=== PATIENT | female | born 1930 | race Caucasian/White ===

== ENCOUNTER 2016-04-02 18:25 | Observation (INO) | payer MEDICARE, OTHER ==
[2016-04-02 19:00] VITALS: BMI 33.2
--- NOTE | 2016-04-02 19:24 | History and Physical Report ---
History of Present Illnes - History of Present Illness Reason for Visit: Nausea vomiting History of Present Illness: 85yo white female with a 2 day history of nausea vomiting and diarrhea. Has vomited 1-15 times today with dry heaves. No blood noted. Has had about 10 stools, no bllod noted. Having some mild abd pain. Fever up to 101 today having some mild chills. Son-in-law with similar symptoms. Patient is diabetic, BS have been all over the place. Some mild hypoglycemic symptoms at time. Due to her medical problems and the inability to keep oral fluids and medications down will admit to observation care. - Past Medical History Cardiac: CAD, HTN, [place] Pulmonary: Asthma (mild intermittent) Endocrine: Diabetes (type 2) - Past Surgical History Past Surgical History: CABG (3 vessels), Other (cataracts removed, carpal tunnel bilaterally) - Past Family History Mother Family History: DM, (67yo, gangrene) Father Family History: (32yo, typhoid fever) Sister 1 Family History: DM, (61yo, complications of DM) - Past Social History Smoke: Quit (50 yrs ago) Occupation: retired, fast [employer] rest[employer] Alcohol: None Drugs: None Lives: With Family Domestic Violence: Negative - Health Maintenance Health Maintenance: Influenza Vaccine, Pneumococcal Vaccine (pneumovac 23). denies: Mammogram Influenza Vaccine: Current for this Influenza Season Pneumonia Vaccine: Yes Resuscitation Status: Resusciation Status Resuscitation Status Full Code - Unable to Obtain History Unable to Obtain: Yes Review of Systems - Review of Systems Constitutional: Fever, Chills, Weakness Eyes: negative: pain, vision change ENT: Nose Discharge (clears). negative: Ear Pain, Ear Discharge, Nose Pain, Nose Congestion, Mouth Pain, Mouth Swelling, Throat Swelling Respiratory: Cough, Shortness of Breath (mild), SOB with Excertion, Wheezing ( mild). negative: Hemoptysis, Pleuritic Pain, Sputum Cardiovascular: negative: Chest Pain, Palpitations, Orthopnea, Paroxysmal Noc. Dyspnea, Edema Gastrointestinal: Nausea, Vomiting, Abdominal Pain, Diarrhea. negative: Constipation, Melena, Hematochezia Genitourinary: Incontinence. negative: Dysuria, Frequency, Hematuria Musculoskeletal: negative: Neck Pain, Shoulder Pain, Arm Pain Skin: negative: Rash Neurological: negative: Weakness, Numbness, Change in Speech, Confusion, Seizures - Medications/Allergies Allergies/Adverse Reactions: Allergies Allergy/AdvReac Type Severity Reaction Status Date / Time nitrofurantoin Allergy Severe Shortness Verified 08/07/14 20:57 [From Macrobid] of Breath nitrofurantoin Allergy Severe Shortness Verified 08/07/14 20:57 macrocrystalline of Breath [From Macrobid] Sulfa (Sulfonamide Allergy Severe Localized Verified 08/07/14 20:57 Antibiotics) Swelling doxycycline Allergy Intermediate Rash Verified 08/07/14 20:57 rosiglitazone maleate Allergy Intermediate Hives Verified 08/07/14 20:57 [From Avandia] gabapentin [From Neurontin] Allergy Mild hyper Verified 08/07/14 20:57 lisinopril Allergy Unknown Cough Verified 08/07/14 20:57 atorvastatin calcium AdvReac Mild Localized Verified 08/07/14 20:57 [From Lipitor] Swelling Exam - Exam General: Alert, Oriented to Person, Oriented to Place, Oriented to Time, Cooperative, Moderate distress HEENT: Atraumatic, Hearing Grossly Normal. No: Mouth Mucous membr. moist/[place] ( dry), Pharyngeal Erythema Neck: Normal Range of Motion. No: Stridor, Rigidity, Lymphadenopathy Carotids: WNL Thyroid: WNL Lungs: Clear to auscultation, Normal air movement. No: Respiratory Distress, Wheezes, Rales, Rhonchi Cardiovascular: Regular rate, Normal S1, Normal S2, No murmurs. No: Gallops, Rubs Abdomen: Soft, Hyperactive Bowel Sounds. No: No tenderness (mild diffuse tenderness), No masses, Distended, Rigid Integumentary: Normal, [place], Warm, Dry Extremities: No clubbing, No cyanosis, No edema, Normal pulses Neurological: Normal gait, Normal speech, Strength Equal Bilat, Normal tone, Cranial nerves 3-12 NL, Reflexes 2+ Psych/Mental Status: Mental status NL, Mood NL, Appropriate Affect, Intact Judgment Assessment/Plan - Assessment/Plan (1) Viral gastroenteritis Status: Acute Current Visit: Yes (2) CAD (coronary artery disease) Status: Chronic Current Visit: Yes Qualifiers: Coronary Disease-Associated Artery/Lesion type: [place] artery [place] vs. 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
[2016-04-02 19:40] LABS: BASOPHILS % 0.1 (0.0-1.5); EOSINOPHILS % 1.1 % (0.0-6.8); LYMPHOCYTES # 0.4 # k/uL (0.6-4.0); MEAN CORPUSCULAR HEMOGLOBIN 31.8 pg (28.0-34.0); MONOCYTES # 0.2 # k/uL (0.0-0.9); MONOCYTES % 3.7 % (0.0-11.0); NEUTROPHILS # 3.6 # k/uL (1.4-7.7)
[2016-04-02] MEDS ORDERED: NITROGLYCERIN 0.4 MG TAB.SUBL SL PRN (19:45)
[2016-04-02] MEDS ORDERED: ALPRAZOLAM 0.5 MG TABLET PO PRN (19:45)
[2016-04-02] MEDS ORDERED: ONDANSETRON HCL/PF 4 MG/ 2ML VIAL IVP PRN (19:51)
[2016-04-02 19:57] LABS: eGFR (African) > 60; eGFR (Non-African) > 60
[2016-04-02] MEDS ORDERED: 0.9 % SODIUM CHLORIDE 1,000 ML IV SCH (20:00)
[2016-04-02] MEDS ORDERED: INSULIN DETEMIR 100 UNIT/ML 3ML PEN.INJCTR SQ SCH (21:00)
[2016-04-02] MEDS ORDERED: MIRTAZAPINE 15 MG TABLET PO SCH (21:00)
[2016-04-02] MEDS: 0.9 % SODIUM CHLORIDE 1,000 ML IV SCH (22:59)
[2016-04-02] MEDS: ENOXAPARIN SODIUM 30 MG/0.3 ML DISP.SYRIN SQ SCH ×2 (23:00→23:03)
[2016-04-02] MEDS: CARVEDILOL 6.25 MG TABLET PO SCH (23:01)
[2016-04-02] MEDS: INSULIN REGULAR, HUMAN 100 UNIT/ML 3ML VIAL SQ SCH (23:17)
[2016-04-03] MEDS ORDERED: ASPIRIN EC 81 MG TABLET.DR ONE (04:44)
[2016-04-03] MEDS: 0.9 % SODIUM CHLORIDE 1,000 ML IV SCH (06:17)
[2016-04-03] MEDS ORDERED: PANTOPRAZOLE SODIUM 40 MG TABLET PO SCH (07:00)
[2016-04-03] MEDS: INSULIN REGULAR, HUMAN 100 UNIT/ML 3ML VIAL SQ SCH ×2 (07:53→13:05)
[2016-04-03] MEDS ORDERED: CARVEDILOL 6.25 MG TABLET PO ONE (08:05)
[2016-04-03] MEDS: CARVEDILOL 6.25 MG TABLET PO SCH (08:10)
[2016-04-03] MEDS ORDERED: CARVEDILOL 6.25 MG TABLET PO SCH (08:24)
[2016-04-03 08:39] VITALS: BP 106/52
[2016-04-03] MEDS ORDERED: SPIRONOLACTONE 25 MG TABLET PO SCH (09:00)
[2016-04-03] MEDS ORDERED: ASPIRIN 81 MG CHEW TAB PO SCH (09:00)
[2016-04-03] MEDS ORDERED: CITALOPRAM HYDROBROMIDE 20 MG TABLET PO SCH (09:00)
[2016-04-03] MEDS ORDERED: LOSARTAN POTASSIUM 50 MG TABLET PO SCH (09:00)
[2016-04-03] MEDS ORDERED: CLOPIDOGREL BISULFATE 75 MG TABLET PO SCH (09:00)
[2016-04-03] MEDS ORDERED: amLODIPine BESYLATE 5 MG TABLET PO SCH (09:00)
[2016-04-03] MEDS ORDERED: ISOSORBIDE MONONITRATE 30 MG TAB.ER.24H PO SCH (09:00)
--- NOTE | 2016-04-03 12:13 | Discharge Summary ---
Discharge Summary - Discharge Sumary History of Present Illness: 85yo white female with a 2 day history of nausea vomiting and diarrhea. Has vomited 1-15 times today with dry heaves. No blood noted. Has had about 10 stools, no bllod noted. Having some mild abd pain. Fever up to 101 today having some mild chills. Son-in-law with similar symptoms. Patient is diabetic, BS have been all over the place. Some mild hypoglycemic symptoms at time. Admitted for rehydration and treatment of diarrhea and vomiting. Home Medications: Ambulatory Orders Medication Instructions Recorded Alprazolam [Xanax] 0.25 mg PO Q6 PRN u2 10/19/12 Lovastatin 20 mg PO HS u2 10/19/12 Nitroglycerin 0.4 mg SL SEE.INSTRUCTIONS u2 10/19/12 Aspir 81 81 mg PO DAILY u2 11/11/12 Cholecalciferol (Vitamin D3) 5,000 unit PO DAILY u2 03/23/13 [Vitamin D3] Metformin HCl [Glucophage] [place] [address] tablet 04/03/16 Ondansetron HCl Rapdis [Zofran Odt] 4 mg PO Q8 #10 tab 04/03/16 Consultations this Visit: None Procedures this Visit: None Allergies/Adverse Reactions: Allergies Allergy/AdvReac Type Severity Reaction Status Date / Time nitrofurantoin Allergy Severe Shortness Verified 08/07/14 20:57 [From Macrobid] of Breath nitrofurantoin Allergy Severe Shortness Verified 08/07/14 20:57 macrocrystalline of Breath [From Macrobid] Sulfa (Sulfonamide Allergy Severe Localized Verified 08/07/14 20:57 Antibiotics) Swelling doxycycline Allergy Intermediate Rash Verified 08/07/14 20:57 rosiglitazone maleate Allergy Intermediate Hives Verified 08/07/14 20:57 [From Avandia] gabapentin [From Neurontin] Allergy Mild hyper Verified 08/07/14 20:57 lisinopril Allergy Unknown Cough Verified 08/07/14 20:57 atorvastatin calcium AdvReac Mild Localized Verified 08/07/14 20:57 [From Lipitor] Swelling Patient Problems: Current Active Problems Problem Status Onset Viral gastroenteritis Acute CAD (coronary artery disease) Chronic Diabetes type 2, controlled Chronic Essential hypertension Chronic Discharge Summary: Patient had blood work done which was stable. patient was started on IV fluids of NS and zofran for nausea. Patient was placed on a clear liquid diet which she tolerated well. Patient's nausea did resolve during the hospitalization. Her diarrhea did improve but was still present at discharge. Blood sugars remained stable in the 100 range. Patient remained afebrile with stable VS. - Final Diagnosis (1) Viral gastroenteritis Problems: Improved, still having some diarrhea, nausea resolved (2) CAD (coronary artery disease) Problems: stable on home meds, no chest pain/pressure (3) Diabetes type 2, controlled Problems: stable on sliding scale insulin, BS in the 100s (4) Essential hypertension Problems: stable on home meds
== END 2016-04-03 13:00 | disposition home or self-care (01) ==
LOC: SOUTH 18:25 → INTOOBSV 18:25
PROVIDERS: ADMIT Family Medicine; ATTEND Family Medicine
DX: A08.4 Viral intestinal infection, unspecified (principal); E11.9 Type 2 diabetes mellitus without complications; I25.10 Atherosclerotic heart disease of native coronary artery without angina pectoris; I10 Essential (primary) hypertension
CPT/HCPCS: 36415; 80053; 85025; G0378; G0379; J1650; J1815; J2405; J7030; S1016